=== PATIENT | female | born 1950 | race Caucasian/White ===

== ENCOUNTER → 2019-10-18 | Outpatient (CLI) | payer MEDICARE ==
[~2019-10-18] MED LIST: GADOTERATE 7.5 MMOL/15 ML SYR ONE
== END | disposition home or self-care (01) ==
LOC: RAD 14:21
PROVIDERS: ATTEND Internal Medicine Hematology & Oncology
DX: C13.9 Malignant neoplasm of hypopharynx, unspecified (principal); R22.1 Localized swelling, mass and lump, neck
CPT/HCPCS: 70491; 70553; 71260; A9575

== ENCOUNTER 2019-11-10 13:31 | Outpatient (CLI) | payer MEDICARE | END 2019-11-10 23:59 | disposition home or self-care (01) | LOC: PETCFH 13:31 | PROVIDERS: ATTEND Internal Medicine Hematology & Oncology | DX: C76.0 Malignant neoplasm of head, face and neck (principal); C13.9 Malignant neoplasm of hypopharynx, unspecified; K57.30 Diverticulosis of large intestine without perforation or abscess without bleeding | CPT/HCPCS: 78815; A9552 ==

== ENCOUNTER 2020-10-17 08:48 | Day surgery (SDC) | payer MEDICARE ==
[~2020-10-17] VITALS: Ht 152.4 cm; Wt 45.0 kg
[2020-10-17 09:30] VITALS: BP 131/77
[2020-10-17] MEDS ORDERED: LIDOCAINE 1%, 20ML ONE (10:39)
[2020-10-17] MEDS ORDERED: FENTANYL PF 100 MCG/2ML ONE ×2 (10:44)
[2020-10-17] MEDS ORDERED: FLUMAZENIL 0.1 MG/1 ML, 5ML ONE (10:44)
[2020-10-17] MEDS ORDERED: MIDAZOLAM 1 MG/ML, 5ML ONE (10:44)
[2020-10-17] MEDS ORDERED: NALOXONE 1 MG/ML, 2ML ONE (10:44)
== END 2020-10-17 12:15 | disposition home or self-care (01) ==
LOC: OUT 08:48
PROVIDERS: ATTEND Internal Medicine Hematology & Oncology
DX: Z45.2 Encounter for adjustment and management of vascular access device (principal); C13.9 Malignant neoplasm of hypopharynx, unspecified; I25.2 Old myocardial infarction; J44.9 Chronic obstructive pulmonary disease, unspecified; F41.9 Anxiety disorder, unspecified
CPT/HCPCS: 36590; 77001; 99156; 99157; J2250; J3010; J2310